=== PATIENT | male | born 1965 | race Caucasian/White ===

== ENCOUNTER → 2016-06-03 | Outpatient (CLI) | payer BC ==
[~2016-06-03] MED LIST: ALBU18HF2 INH; CEPH500T PO; CLOT15CR5 TOP; HYDR-4072 PO; HYDR-4246 PO; TRAM50TA4 PO
--- NOTE | 2016-06-03 08:31 | DI ---
Indication: ITS.REASON: N50.9 Disorder of male genital organs; Epididymal mass PROCEDURE: US TESTICULAR: Encounter: Initial Comparison: None FINDINGS: Both testicles are present in expected location. The testicles demonstrate a homogenous echotexture without intratesticular mass. The right testicle measures 4.7 x 3.0 x 2.1 cm, and the left testicle measures 3.8 x 3.0 x 2.3 cm. There is no microlithiasis identified. Color Doppler imaging demonstrates symmetric, arterial flow throughout both testicles. Normal pulsed Doppler arterial and venous waveforms were obtained from each testicle. There are small bilateral hydroceles. Additionally, there is a left varicocele. There appears to be a small appendix testes the on the left measuring only 5 mm in greatest dimension. The right epididymis does appear to be somewhat edematous. Inferior aspect of the right testis appears to be particularly heterogeneous and edematous and slightly hypervascular. There is also heterogeneity of the right epididymal head where hypoechoic areas seen does not appear to be masslike but may represent inflammation. IMPRESSION: 1. Negative for evidence of testicular torsion or intratesticular mass. 2. Findings most in keeping with right epididymitis. 3. There is visualization of an appendix testis on the left measuring 5 mm. 4. Small left varicocele. 5. Small bilateral hydroceles.. .
== END ==
LOC: IMA 07:25
PROVIDERS: ATTEND Specialist
DX: I86.1 Scrotal varices (principal); N43.3 Hydrocele, unspecified; Q55.29 Other congenital malformations of testis and scrotum; N50.9 Disorder of male genital organs, unspecified

== ENCOUNTER 2016-06-11 07:59 | Day surgery (SDC) | payer BC ==
[2016-06-11] VITALS (18 sets, daily range): BP systolic 93–135; BP diastolic 54–80; PULSE 42–83; RESP 12–23; TEMP 97.2–97.6; O2SAT 92–99; Ht 170.2 cm; Wt 75.1 kg
[~2016-06-11] VITALS: Ht 170.2 cm; Wt 75.1 kg
[~2016-06-11 07:59] MED LIST changes: -CEPH500T PO; -HYDR-4072 PO; -HYDR-4246 PO; +LIDOCAINE 1% (10mg/ml) 2ml SDV INJ ONE; +LR 1,000 ML IV SCH; -TRAM50TA4 PO
[2016-06-11] MEDS ORDERED: CEFAZOLIN 1 GRAM INJECTION IV ONE (08:00)
--- OUTSIDE RECORDS SUMMARY | 2016-06-11 08:04 | XMS REPORT | Continuity of Care Document ---
Author Author [facility] Organization [facility] Address Unknown Phone Unavailable Support Name Relationship Address Phone CLIENT, BILLING Caregiver Unknown Unavailable ZEN BENTON MD Caregiver [address] [phone] LINDAMARAEL Next Of Kin [address] [place] [address] Insurance Providers Payer Name Policy Number Subscriber Name Relationship Workers Compensation Norman Mckeon 18 Self Problems Medical Problems Problem Onset Date Status Crushing injury of left index finger Unknown Active Finger amputation, traumatic Unknown Active Crushing injury of third finger of left hand Unknown Active Crushing injury of left index finger Unknown Active Medications Medication Dose Route Sig Days/Qty Instructions Order Date Discontinued Date Status Cephalexin 2 Tab PO TWICE A DAY 40 Qty 02/22/14 Active Hydrocodone/Acetaminophen 1 Tab PO Every 6 Hours 20 Qty 02/22/14 Active Social History Social History Problem Response Recorded Date/Time Hx Alcohol Use Y 1-2 DAILY 02/22/2014 9:40am Tobacco Usage none 02/22/2014 10:00am Hospital Discharge Instructions No hospital discharge instructions. Plan of Care No plan of care. Functional Status Query Response Date Recorded Physical Hygiene Self February 22, 2014 9:40am Physical Hygiene Self February 22, 2014 9:40am Allergies, Adverse Reactions, Alerts Allergen Type Severity Reaction Status Last Updated No Known Allergies Active 02/22/14 Immunizations Name Given Type Hx Tetanus, Diptheria, Pertussis Y "1 YEAR AGO" Historical Hx Tetanus, Diptheria, Pertussis Y "1 YEAR AGO" Historical Vital Signs Acute Vital Signs Vital Response Date/Time Temperature (Fahrenheit) 96.6 deg F (96.8 - 99.1) Temperature (Calculated Celsius) 35.10831 degrees C (36.0 - 37.3) Pulse Rate (adult) 59 bpm (60 - 100) Respiratory Rate 16 breaths/min (10 - 20) O2 Sat by Pulse Oximetry 98 % (90 - 100) Blood Pressure 122/76 mm Hg Results Name: NORMAN MCKEON Unit #: [id number] : 1965 Sex: M Loc / Svc: ED DOS: 02/22/14 Signed Report #: [id number] DIAGNOSTIC IMAGING REPORT TYPE OF EXAM: FINGERS LEFT 2 VIEW MIN Dictated By: ZEN BENJAMIN MD INDICATION: ITS.REASON: crush injury -- caught in belt COMPARISON: none. FINGERS LEFT 2 VIEW MIN: Soft tissue tuft and bone tuft of the flanks of the middle finger is evidence of an amputation injury. There is a small fragment of bony tuft bone remains. No evidence of a radiopaque object. 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 IMPRESSION: Amputation injury. . Procedures No known history of procedures. Encounters Encounter Location Date/Time Departed Emergency Room [facility] 02/22/14 9:29am
[2016-06-11 08:44] LABS: BASOPHILS % (AUTO) 0.4 % (0-2); EOSINOPHILS # (AUTO) 0.1 T/MM3 (0-0.5); EOSINOPHILS % (AUTO) 1.9 % (0-4); HCT - HEMATOCRIT 45.6 % (41-53); HGB - HEMOGLOBIN 15.3 GM/DL (13.5-17.5); IMMATURE GRANULOCYTE # (AUTO) 0.01 T/MM3 (0.00-0.03); IMMATURE GRANULOCYTE % (AUTO) 0.2 % (0.0-0.5); LYMPHOCYTES # (AUTO) 1.3 T/MM3 (1-4.8); LYMPHOCYTES % (AUTO) 28.3 % (23-45); MEAN CORPUSCULAR HGB 30.5 UUG (26-34); MEAN CORPUSCULAR HGB CONC(MCHC 33.6 GM/DL (31-37); MEAN CORPUSCULAR VOLUME 90.8 UM3 (80-100); MEAN PLATELET VOLUME 11.2 UM3 (9.4-12.4); MONOCYTES # (AUTO) 0.3 T/MM3 (0-0.8); MONOCYTES % (AUTO) 5.5 % (0-9.0); NEUTROPHILS % (AUTO) 63.7 % (33-66); RED BLOOD COUNT 5.02 M/MM3 (4.50-5.90); WBC - WHITE BLOOD COUNT 4.7 T/MM3 (4.5-11.0)
[2016-06-11 08:55] LABS: ANION GAP 12 MEQ/L (5-15); BUN/CREATININE RATIO 18 RATIO (6-26); CHLORIDE 105 MEQ/L (98-107); CO2 - CARBON DIOXIDE 27 MEQ/L (22-30); CREATININE 1.1 MG/DL (0.8-1.5); GLOMERULAR FILTRATION RATE 71; GLUCOSE 94 MG/DL (75-110); SODIUM 144 MEQ/L (134-144)
[2016-06-11] MEDS ORDERED: LIDOCAINE 1% (10mg/ml) 30ml SDV ONE (08:59)
--- NOTE | 2016-06-11 09:00 | ANESPREOP ---
Anesthesia Record Date and Time DATE: 06/11/16 TIME: 08:56 Pre-Op Diagnosis epididymal mass Proposed Surgical Procedure RT SCOTAL EXPLORATIOON BY INGUINAL INCISION,BX,POSSIBLE EPIDYMECTOMY OR ORC Allergies: Coded Allergies: No Known Allergies (Unverified , 02/22/14) Ht/Wt/BMI Height: 5 ' 7.00 " Weight: 75.100 kg BMI: 25.9 kg/m2 Vital Signs Date Time Temp Pulse Resp B/P Pulse Ox O2 Delivery O2 Flow Rate FiO2 06/11/16 08:05 16 06/11/16 08:05 97.6 57 135/76 99 Room Air Medications Inpatient Medications Current Medications Medications (Trade) Dose Ordered Sig/Efren Start Time Stop Time Status Last Admin Dose Admin Lactated Ringer's (Lactated Ringers) 1,000 ml @ 30 mls/hr Q24H 06/11/16 07:00 06/11/16 08:45 30 MLS/HR Albuterol Sulfate (Ventolin HFA 90 mcg/actuation) 18 Gm Hfa.aer.ad, 1 PUFF INH DAILY PRN for ASTHMA, (Reported) Last Taken: on 05/21/16 Clotrimazole/Betamethasone Dip (Clotrimazole- Betamethasone Crm) 15 Gm Cream..g., 1 APPLIC TOP BID, (Reported) Last Taken: on 05/10/16 Currently on Beta Nikita: No Medical/Surgical History Anesthesia PMH: Reports: Asthma (USE INHALER), Denies: *Diabetes, Anesthesia Reactions (NO AIRWAY ISSUES), Cancer, Glaucoma, Malignant Hyperthermia, Renal Disease, Sleep Apnea, Thyroid Disease Smoking Status: Never smoker Has pt. smoked today?: No Use Chewing Tobacco?: No Second Hand Exposure: No Substance Use Type: does not use Substance last used: unknown Alcohol Intake: daily Last Drink: unknown Past Surgical History Orthopedic Surgeries: Yes - REATTACHED LEFT POINTER FINGER Abdominal Surgeries: Genitourinary Surgeries: Cardiac Surgeries: Endocrine Surgeries: Reproductive Surgeries: Yes - CIRCUMCISION PER H&P,VASECTOMY Neurological Surgeries: Ear Surgeries: Nose Surgeries: - REPAIR OF DEVIATED SEPTUM Throat Surgeries: Other Surgeries: Yes - CIRCUMCISION PER H&P,VASECTOMY Anesthesia Adverse Reactions: FOUND none Family Hx of Anesthesia Advers: none Hx of Motion Sickness: No Pertinent Findings Laboratory Tests 06/11/16 08:32 EKG Rhythm: Sinus Rhythm Physical Exam Respiratory: Bilat breath sounds equal, Lungs clear Cardiovascular: FOUND Regular rate, rhythm, FOUND No murmur Airway Assessment Mallampati Score: II TMD: 3 Fingerbreadths Neck Extension: Good Overall Assessment: No Airway Concerns ASA: 2 Plan Anesthesia Plan: GETA Discussion Discussed risks/options/alternatives of anesthesia and questions answered. Patient consents. Nursing pain assessment noted. Present: Spouse Attestation Statement Prior to the delivery of any anesthetic medication, I examined the patient, developed the plan, obtained the patient's consent and discussed the risk and benefits of the procedure with the patient/guardian. QUAN CALLE CRNA Jun 11, 2016 09:00
[2016-06-11] MEDS ORDERED: LIDOCAINE 2% (20mg/ml) 5ml PF SDV ONE (09:05)
[2016-06-11] MEDS ORDERED: PROPOFOL 200mg 20 ML IV ONE (09:05)
[2016-06-11] MEDS ORDERED: ROCURONIUM 50mg/5ml INJECTION IV ONE (09:05)
[2016-06-11] MEDS ORDERED: FENTANYL 250mcg/5ml INJECTION ONE (09:07)
[2016-06-11] MEDS ORDERED: MIDAZOLAM 2mg/2ml INJECTION ONE (09:08)
[2016-06-11] MEDS ORDERED: GLYCOPYRROLATE 0.4mg/2ml INJECTION ONE (09:08)
[2016-06-11] MEDS ORDERED: ONDANSETRON 4mg/2ml INJECTION ONE (09:08)
[2016-06-11] MEDS ORDERED: DESFLURANE 240 ML LIQUID IH ONE (09:27)
[2016-06-11] MEDS ORDERED: ONDANSETRON 4mg/2ml INJECTION IV PRN (11:00)
[2016-06-11] MEDS ORDERED: MORPHINE 10mg/ml vl INJECTION IV PRN (11:00)
[2016-06-11] MEDS ORDERED: HYDROCODONE/APAP 5 mg/325 mg TABLET PO PRN (11:00)
[2016-06-11] MEDS ORDERED: KETOROLAC 30mg/ml INJECTION IV PRN (11:00)
[2016-06-11] MEDS ORDERED: LR 1,000 ML IV SCH (11:00)
[2016-06-11] MEDS ORDERED: HYDROMORPHONE 2mg/ml INJECTION IV PRN (11:15)
[2016-06-11] MEDS ORDERED: HYDR-4246 PO (11:25)
[2016-06-11] MEDS ORDERED: TRAM50TA4 PO (11:25)
--- NOTE | 2016-06-11 12:49 | ANESPO ---
Post-Op Note Date 06/11/16 Time: 12:46 Status Pt Participated in Evaluation: Pt participated in person Vital Signs Date Time Temp Pulse Resp B/P Pulse Ox O2 Delivery O2 Flow Rate FiO2 06/11/16 12:30 48 16 106/54 98 Room Air 06/11/16 11:30 97.2 Respiratory Function: Airway patent, Regular respirations Cardiovascular Function: Regular pulse Mental Status: Alert/oriented Pain Level Intensity: 3 Hydration: Taking po fluids, IV infusing Complications during Recovery None apparent Post-Anesthesia Notes pt. [email or web address] low in room Follow-Up Instructions Instructions Per Surgeon QUAN CALLE CRNA Jun 11, 2016 12:48
[2016-06-11] MEDS ORDERED: [UNRECOGNIZED DRUG - OTHER] TOP ONE (12:51)
--- NOTE | 2016-06-11 13:30 | NUR ---
STATUS DR. BALDERAS NOTIFIED VIA PHONE OF PATIENT INABILITY TO URINATE AT THIS TIME, PATIENT STATES NO URGE. DR. BALDERAS STATES PATIENT MUST URINATE PRIOR TO DISMISSAL. WILL CONTINUE TO MONITOR.
--- NOTE | 2016-06-11 13:50 | NUR ---
STATUS: PATIENT ATTEMPTED TO VOID INTO TOILET, ABLE TO GO SMALL AMOUNT, NO MEASUREMENT OBTAINED. WILL CONTINUE TO MONITOR.
--- NOTE | 2016-06-11 14:05 | NUR ---
STATUS BLADDER SCAN COMPLETED SHOWING 218 ML URINE. WILL CONTINUE TO MONITOR.
--- NOTE | 2016-06-11 14:19 | OPNOTEF ---
DATE OF OPERATION 06/11/2016 PREOPERATIVE DIAGNOSIS Right epididymal mass. POSTOPERATIVE DIAGNOSIS Epididymitis and hemorrhagic epididymal cyst. OPERATION PERFORMED Right scrotal exploration through an inguinal incision with right epididymal biopsy and epididymectomy and orchiopexy. SURGEON Jared Garcia MD ANESTHESIA GenTIVA INDICATIONS Mr. Quintanilla is a 50-year-old man who recently noticed a lump in the right epididymis. Ultrasound showed cysts but no definite abnormalities. But this lump felt hard and solid. The patient would like to have this lump removed. Patient was brought in to have the exploration through a groin incision in case there is a malignancy and have the lump biopsied. If the biopsy suggests possible malignancy or malignancy, then radial orchiectomy will be performed. However if it is a benign lesion, then we will either excise the lump or remove the entire epididymis. DESCRIPTION OF PROCEDURE Patient was taken to the operating room and placed him in supine position under adequate general intravenous anesthesia. Patient was prepped and draped in the usual fashion for scrotal exploration through a right groin incision. Marcaine and lidocaine mixture without epinephrine was injected along the right inguinal area between the external and internal inguinal ring. Then incision was made. Subcutaneous fascia was then excised including Ra's fascia to expose the external oblique fascia. This was bluntly exposed down to the external inguinal ring. The inguinal canal was exposed by incising on the external oblique fascia over the inguinal canal. The ilioinguinal nerve was identified and dissected off the cord structure and retracted medially along with the edge of the external oblique fascia. The cord was then mobilized from the floor of the inguinal canal and 1/4-inch Nguyen drain was wrapped around the cord at the level of the internal inguinal ring. The cord was then strangulated with the Nguyen drain and clamp was applied to keep it strangulated. The testicle was then dissected off the scrotal wall sharply and bluntly, avoiding buttonholing the scrotum and avoiding entering into the tunica vaginalis of the testicle. Thus, the testicle was delivered up into the incision in the groin. Sterile towel was draped out the wound and separate operating field was created to prevent contamination in case the biopsy returned malignant. The hydrocele sac was then incised and testicle was visualized. There was a very small amount of fluid. The tunica vaginalis was somewhat adherent to the tunica albuginea of the testicle suggesting some degree of inflammation. The lump of the epididymis was in the tail end of the epididymis and it was hard and firm and had bluish color and it was round and distinct. The bottom half of the epididymis was then dissected sharply to expose the nodule. The nodule was then entirely dissected off the epididymis and sent as a biopsy specimen. The frozen section returned as a hemorrhagic cyst and no evidence of malignancy. There was evidence of inflammation of the epididymis. Therefore it was decided to remove the entire epididymis. Epididymis was then dissected off the cord structures and off the tunica albuginea of the testicle from tail end and gradually up to the head of the epididymis. The entire epididymis was thus retrieved and dissected off. Minor bleeding vessels were cauterized. At the top of the testicle where the head of the epididymis was attached to was closed with 4-0 Vicryl. There was a markedly dilated convoluted portion of the vas deferens and this was excised further. After assuring satisfactory hemostasis, two stitches of 4-0 Vicryl were used to fix the testicle onto the scrotal wall and testicle was dropped back into the right hemiscrotum. The roof of the inguinal canal was released from the clamp. Ilioinguinal hernia was placed on top of the cord structures. External oblique fascia was then closed over the inguinal canal with 4-0 Vicryl. Ra's fascia was closed with 3-0 chromic and skin closed subcuticularly with chromic suture. Steri-Strips were placed and Calodium applied over the Steri-Strips. Scrotal support was placed and patient was taken to the recovery are in stable condition. ALDEN
--- NOTE | 2016-06-11 14:30 | NUR ---
STATUS DR. BALDERAS IN ROOM TO VISIT WITH PATIENT. ORDER RECEIVED FOR [employer], AND TEACHING FOR CARE AND HOME REMOVAL IN AM.
[2016-06-11] MEDS ORDERED: LIDOCAINE JELLY 2% 30ml TUBE ONE (14:52)
[2016-06-11] MEDS ORDERED: ALBUTEROL INH.SOLN. 2.5mg/3ml (0.083%) Neb. AEROSOL PRN (15:00)
--- NOTE | 2016-06-11 15:00 | NUR ---
STATUS TEACHING COMPLETED WITH PATIENT AND PATIENT SPOUSE CONCERNING ESPINOZA CATHETER HOME CARE AND INSTRUCTIONS ON HOW TO DISCONTINUE ESPINOZA AT HOME
[2016-06-11] MEDS ORDERED: CLOTRIMAZOLE TOP SCH (21:00)
[2016-06-11] MEDS ORDERED: BETAMETHASONE TOP SCH (21:00)
== END 2016-06-11 15:05 | disposition home or self-care (01) ==
LOC: SCU 07:59
PROVIDERS: ATTEND Specialist
DX: N45.1 Epididymitis (principal); N50.3 Cyst of epididymis
CPT/HCPCS: 36415; 54640; 54860; 80048; 85025; J0690; J1170; J2250; J2405; J2704; J3010; J7120